=== PATIENT | male | born 1995 | race Hispanic/Latino ===

== ENCOUNTER 2021-11-08 11:59 | Emergency (ER) | payer OTHER, SELFPAY ==
--- NOTE | ~2021-11-08 | XR_ITS ---
EXAMINATION: XR knee RT 3V DATE: 11/08/2021 12:24 INDICATION: Posterior right knee pain post fall 2 weeks prior. TECHNIQUE: AP, oblique and crosstable lateral views of the right knee were obtained COMPARISON: None. FINDINGS: Alignment is normal. No fracture. Joint spaces appear normal on nonweightbearing imaging. Small knee joint effusion without layering lipohemarthrosis. Soft tissues are unremarkable. IMPRESSION: 1. Small right knee joint effusion. No osseous abnormality. Reviewed, dictated and finalized at location A.
[2021-11-08 12:00] VITALS: BP 138/83; PULSE 69; RESP 16; TEMP 36.6; O2SAT 100
--- NOTE | 2021-11-08 12:59 | ED.LOWEXIN ---
HPI - Extremity Injury (Lower) General Chief Complaint: Extremity Injury, Lower Stated Complaint: right knee pain Time Seen by Provider: 11/08/21 12:06 History of Present Illness HPI Narrative: Patient is a 26-year-old male who presents to the ER with right knee pain and swelling. Patient was riding a horse when it fell on him 1 week ago. He is able to bear weight but has swelling and cannot fully flex his right lower extremity at the knee. No numbness or tingling or distal swelling. He has been applying a naproxen/lidocaine cream that he obtained in [place]. No fevers or chills or sweats. Did not strike his head or lose consciousness. Related Data Home Medications Medication Instructions Recorded Confirmed No Home Medications 11/08/21 11/08/21 Allergies Allergy/AdvReac Type Severity Reaction Status Date / Time No Known Allergies Allergy Mild Verified 07/17/09 18:35 Review of Systems Constitutional: Constitutional: Denies chills and Denies fever(s) Musculoskeletal: Musculoskeletal: Reports arthralgias, Reports joint swelling and Denies muscle cramps Neurologic: Denies numbness and Denies weakness PMFSH Past Medical History Medical History (Updated 11/08/21 @ 13:12 by Alli Rogers MD) Healthy adult male Surgical History Surgical History (Updated 11/08/21 @ 13:12 by Alli Rogers MD) No history of previous surgery Social History Social History (Updated 11/08/21 @ 13:12 by Alli Rogers MD) Smoking status: Never smoker Exam Narrative: GENERAL: Well-appearing, well-nourished, and in no acute distress. HEAD: Normocephalic, atraumatic. HEART: Regular rate and rhythm. Normal peripheral pulses. EXTREMITIES: Focused exam of the right lower extremity reveals that patient can only actively flex to just beyond 90 degrees before he has pain and cannot finish. He has slight effusion. No joint line tenderness or tenderness over the patella. Knee seems ligamentously intact. Heart SKIN: Warm, dry, no rash. NEURO: Alert and oriented x3. PSYCH: Normal mood and affect. Course Course Emergency Course: Recommend patient continue her home knee brace and bear weight as tolerated. Encourage anti-inflammatories and follow-up with orthopedic surgery. Vital Signs Vital signs: Vital Signs Temperature 97.9 F 11/08/21 12:00 Pulse Rate 69 11/08/21 12:00 Respiratory Rate 16 11/08/21 12:00 Blood Pressure 138/83 11/08/21 12:00 Pulse Oximetry 100 11/08/21 12:00 Oxygen Delivery Room Air 11/08/21 12:00 Temperature 97.9 F 11/08/21 12:00 Pulse Rate 69 11/08/21 12:00 Respiratory Rate 16 11/08/21 12:00 Blood Pressure 138/83 11/08/21 12:00 Pulse Oximetry 100 11/08/21 12:00 Oxygen Delivery Room Air 11/08/21 12:00 MDM - Extremity Injury (Lower) Imaging Data Radiologist's impression: ITS Impressions Knee X-Ray 11/08/21 12:27 IMPRESSION: 1. Small right knee joint effusion. No osseous abnormality. Discharge Plan Discharge Clinical Impression: Effusion of knee, Knee sprain Patient Disposition: Home, Self-Care Condition: Stable Instructions: Knee Sprain (ED), Swollen Knee Joint (ED) Additional Instructions: Return the ER if you suffer new injury, you have chest pain or shortness of breath, you have additional concerns. Follow-up with orthopedic surgery for further evaluation they will determine whether you need an MRI or physical therapy. You may take ibuprofen or naproxen at home for discomfort. Prescriptions: No Action No Home Medications Follow-up/Referrals: Juventino Galindo MD [Primary Care Provider] - Pernell Morin MD [Physician] - 1 Week
== END 2021-11-08 13:46 | disposition home or self-care (01) ==
PROVIDERS: Emergency Provider Emergency Medicine; PCP Family Medicine
DX: S83.91XA Sprain of unspecified site of right knee, initial encounter (principal); V80.010A Animal-rider injured by fall from or being thrown from horse in noncollision accident, initial encounter
CPT/HCPCS: 73562; 99283

== ENCOUNTER 2022-10-02 11:47 | Emergency (ER) | payer OTHER, SELFPAY ==
[2022-10-02 11:58] VITALS: BP 150/90; PULSE 104; RESP 16; TEMP 37.2; O2SAT 100
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
== END 2022-10-02 12:40 | disposition home or self-care (01) ==
PROVIDERS: Emergency Provider Nurse Practitioner Family; PCP Family Medicine
DX: H66.93 Otitis media, unspecified, bilateral (principal)
CPT/HCPCS: 87081; 87880; 99213; G0463

== ENCOUNTER 2023-09-19 11:43 | Emergency (ER) | payer OTHER, SELFPAY ==
[2023-09-19 11:54] VITALS: BP 139/82; PULSE 72; RESP 16; TEMP 36.8; O2SAT 100
--- NOTE | 2023-09-19 12:53 | ED.GENADULT ---
HPI - General Adult General Chief complaint: Urogenital-Male Stated complaint: Male Urogenital Source: patient Mode of arrival: ambulatory Limitations: no limitations History of Present Illness HPI narrative: Patient presents for evaluation of potential STI exposure. Indicates he had sex with a new female partner yesterday. Today he woke from sleep with a lesion to his tongue and some bumps to the glans of his penis. he denies associated pain. He denies any dysuria, urethral discharge or testicular pain. He has a mild sore throat. He has not spoken with the partner to determine whether she is having symptoms. No history of STI in the past. He engaged in insert of vaginal intercourse and both performed and received oral sex. Related Data Allergies Allergy/AdvReac Type Severity Reaction Status Date / Time No Known Allergies Allergy Mild Verified 09/19/23 11:47 Review of Systems Review of Systems: CONSTITUTIONAL: Denies fever, chills, or sweats. EYES: Denies visual changes, redness, or discharge. ENT: reports a sore to the left lateral aspect of the tongue. Reports mild sore throat. Denies rhinorrhea, congestion, or otalgia. CARDIOVASCULAR: Denies chest pain, palpitations, or edema. RESPIRATORY: Denies cough or dyspnea. GASTROINTESTINAL: Denies abdominal pain, nausea, vomiting, or diarrhea. GENITOURINARY: Denies dysuria or hematuria. SKIN: Reports bumps to the glans of the penis MUSCULOSKELETAL: Denies back pain, joint pain, or myalgia. NEUROLOGIC: Denies headache, numbness, dizziness, or weakness. PSYCHIATRIC: Denies anxiety or depression. [facility] Past Medical History Medical History Healthy adult male Surgical History Surgical History (Updated 11/08/21 @ 13:12 by Alli Rogers MD) No history of previous surgery Family History Family History Mother Family history non-contributory Social History Social History Smoking status: Never smoker Alcohol intake: current Alcohol use details: social Substance use: never Living arrangements: with family Gender identity (if verbalized by the patient): Male Sexual Orientation (if Verbalized by the Patient): Straight or Heterosexual Spiritual care concerns: No Exam Narrative: GENERAL: Well-appearing, well-nourished, and in no acute distress. HEAD: Normocephalic, atraumatic. EYES: PERRLA and EOMI. ENT: Nares clear, no rhinorrhea or epistaxis. Mucous membranes moist. bilateral tonsillar enlargement and erythema without exudate. Uvula is midline. Approximately 1 cm area of slightly raised well is alert noted to the left lateral aspect of the tongue. There were are many slightly raised areas of erythema that are mostly confluent noted to the glans of the penis. Bilateral TMs pearly fam nonbulging NECK: Supple. No adenopathy or masses. No carotid bruits or JVD CHEST: Clear to auscultation. No respiratory distress. No wheezes rales or rhonchi HEART: Regular rate and rhythm. No murmur heard. Normal peripheral pulses. ABDOMEN: Soft, nontender, nondistended, normal active bowel sounds. EXTREMITIES: Normal range of motion. No edema. SKIN: Warm, dry, no rash. NEURO: No focal deficits. Alert and oriented x3. PSYCH: Normal mood and affect. Course Course Emergency Course: This is a 28-year-old male who presented for evaluation of potential exposure to STI. Strep was performed due to tonsillar enlargement and was negative. Will send throat culture. HSV swab of tongue performed. Gonorrhea and chlamydia of the throat was performed. In terms of the urine we checked gonorrhea, chlamydia, Trichomonas. We also did a wound culture and herpes viral swab to the glans of the penis. patient was upset emotionally so we opted to proceed with treatment for
[2023-09-19] MEDS: metroNIDAZOLE 250 MG TABLET 2000 MG PO (12:57)
[2023-09-19] MEDS: cefTRIAXone 500 MG, LIDOCAINE HCL 1% LOCAL INJ 1 ML IM (12:58)
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
[2023-09-19 15:11] LABS: Trichomonas Vag PCR NOT DETECTED (NOT DETECTE)
[2023-09-19 17:59] LABS: Chlamydia trachomatis NOT DETECTED (NOT DETECTE); Neisseria gonorrhoeae PCR NOT DETECTED (NOT DETECTE)
[2023-09-23 05:03] LABS: Source NOT GIVEN
[2023-09-23 05:03] LABS: Source TONGUE
== END 2023-09-19 13:30 | disposition home or self-care (01) ==
PROVIDERS: Emergency Provider Nurse Practitioner
DX: Z11.3 Encounter for screening for infections with a predominantly sexual mode of transmission (principal)
CPT/HCPCS: 87070; 87075; 87081; 87205; 87255; 87491; 87591; 87661; 87880; 96372; 99213; A9270; G0463; J0696